=== PATIENT | female | born 1965 | race Caucasian/White ===

== ENCOUNTER 2017-07-01 17:31 | Emergency (ER) | payer BC ==
[~2017-07-01] VITALS: Ht 165.1 cm; Wt 117.0 kg
[~2017-07-01 17:31] MED LIST: IPRA1AER2 INH; LEVAAER2 INH; MOME220A INH; MONT1TAB3 PO
[2017-07-01 17:36] VITALS: TEMP 36.7; Ht 165.1 cm; Wt 117.0 kg
[2017-07-01] MEDS ORDERED: ONDANSETRON INJ 2 MG/ML 2 ML VIAL IV STA (17:54)
[2017-07-01] MEDS ORDERED: HYDROmorphone INJ 0.5 MG/0.5 ML SYR IV STA (17:54)
[2017-07-01] MEDS ORDERED: CETI10TA84 PO (18:06)
--- NOTE | 2017-07-01 18:27 | DIAGNOSTIC IMAGING REPORT ---
RIGHT KNEE 1 OR 2 VIEWS ROUTINE CLINICAL HISTORY: Right knee pain status post trauma COMPARISON: None. DISCUSSION: There is a lipoma hemarthrosis. There is a longitudinal oriented proximal tibial fracture extending to the lateral tibial plateau. IMPRESSION: 1. Minimally depressed lateral tibial plateau fracture with a longitudinal metaphyseal component 2. Lipohemarthrosis Electronically signed by: Zackery Schumacher M.D. 07/01/2017 6:26 PM Dictated Date/Time: 07/01/2017 6:25 PM
--- NOTE | 2017-07-01 19:03 | DIAGNOSTIC IMAGING REPORT ---
CT RIGHT KNEE NO CONTRAST CT DOSE: 242.40 mGy.cm CLINICAL HISTORY: Tibial plateau fracture TECHNIQUE: Helical images were acquired in the transverse plane. Sagittal and coronal reformatted images were reviewed. A dose lowering technique was utilized adhering to the principles of ALARA. COMPARISON STUDY: Conventional radiographic study dated 07/01/2017 FINDINGS: There is an oblique/longitudinally oriented fracture of the proximal tibial metaphysis. Approximately the fracture extends to the tibial spines and to the medial aspect of the lateral tibial plateau. There is an associated lipohemarthrosis. Posterior medially, there is 6 mm of maximal depression. IMPRESSION: 1. Lipohemarthrosis 2. Fracture involving the lateral tibial plateau and tibial spines with an oblique/longitudinal component which exits the medial tibial metaphysis. There is 6 mm of maximal depression of the posterior medial lateral tibial plateau fragment Electronically signed by: Zackery Schumacher M.D. 07/01/2017 7:02 PM Dictated Date/Time: 07/01/2017 6:57 PM
[2017-07-01] MEDS ORDERED: OPTIRAY 320 IV PRN (19:45)
--- NOTE | 2017-07-01 20:22 | DIAGNOSTIC IMAGING REPORT ---
CT CT ANGIOGRAPHY OF THE RIGHT LOWER EXTREMITY CT DOSE: 375.36 mGy.cm CLINICAL HISTORY: Tibial plateau fracture. Possible associated vascular injury. TECHNIQUE: CT angiography was performed from the mid femoral level to the mid tibial level and a dynamic helical fashion during intravenous administration of 120 cc of Optiray 320. MIP imaging was performed. A dose lowering technique was utilized adhering to the principles of ALARA. COMPARISON STUDY: Conventional radiographic study dated 07/01/2017, CT scan dated 07/01/2017 FINDINGS: The tibial plateau fracture previously described is again evident. The superficial femoral artery is patent. The popliteal artery is patent. There are no intimal flaps to indicate dissection. There is no evidence of pseudoaneurysm. The anterior tibial, posterior tibial, and peroneal arteries are patent to the mid calf level. IMPRESSION: 1. No evidence of acute arterial injury. 2. No evidence of arterial stenosis. Electronically signed by: Zackery Schumacher M.D. 07/01/2017 8:21 PM Dictated Date/Time: 07/01/2017 8:18 PM
[2017-07-01] MEDS ORDERED: OXYC1TAB3 PO (22:10)
[2017-07-01] MEDS ORDERED: ONDANSETRON HOME PACK 4MG OD TAB PO ONE (22:15)
[2017-07-01] MEDS ORDERED: OXYCODONE IR HOME PACK PO ONE (22:15)
[2017-07-01 22:16] VITALS: BP 147/76; PULSE 105; O2SAT 98
--- NOTE | 2017-07-02 00:15 | EMERGENCY ROOM VISIT NOTE ---
History Report prepared by Pedro: Margareth Pineda Under the Supervision of: Dr. Shun Liu M.D. First contact with patient: 17:38 Chief Complaint: KNEEPAIN Stated Complaint: FALL/ RT KNEE & HIP PAIN History of Present Illness The patient is a 52 year old female who presents to the Emergency Room with complaints of a fall [employer]. The patient was in her garage up on a ladder. She was 3 steps up. She was reaching for a shelf when she rested her right foot on a nearby stool. The stool flipped and she fell to the ground, hyperextending her right knee in the fall. She heard a snap from below her knee. She then fell to her buttocks, back, and slightly hit the back of her head. She currently rates her discomfort as a 5/10 in severity. She has had a partially torn hamstring at the insertion into the pelvis. She has been going to physical therapy. Pt denies LOC, headache, visual changes, neck pain, chest pain, breathing difficulties, nausea, vomiting, abdominal pain, back pain, numbness, weakness, open wounds, active bleeding, or other complaints. Source of History: patient Onset: [employer] Position: other (global) Symptom Intensity: 5/10 Quality: other (fall) Timing: other (episodic) Note: Pt reports right knee pain. Review of Systems See HPI for pertinent positives and negatives. A total of ten systems were reviewed and were otherwise negative. Past Medical & Surgical Medical Problems: (1) Asthma Family History Cancer Social History Smoking Status: Never Smoker Marital Status: single Occupation Status: employed Current/Historical Medications Scheduled Cetirizine (Zyrtec), 10 MG PO DAILY Montelukast Sodium (Singulair), 10 MG PO DAILY Scheduled PRN Oxycodone Ir (Roxicodone Ir), 1-2 TAB PO Q4H PRN for Severe Pain Allergies Coded Allergies: No Known Allergies (Unverified , 07/01/17) Physical Exam Vital Signs Date Time Temp Pulse Resp B/P (MAP) Pulse Ox O2 Delivery O2 Flow Rate FiO2 07/01/17 22:16 105 20 147/76 98 Room Air 07/01/17 20:56 73 130/72 98 Room Air 07/01/17 19:21 78 20 116/52 98 Room Air 07/01/17 17:36 36.7 72 18 129/85 97 Room Air Physical Exam GENERAL: Awake, alert, mildly uncomfortable appearing, no significant distress HEAD: Normocephalic, atraumatic. No thompson sign. No raccoon eyes. EYES: Normal conjunctiva. PERRL. EARS: External ears normal. Right TM normal. Left TM normal. NOSE: Atraumatic OROPHARYNX: Lips, tongue, and mucosa unremarkable. No erythema or exudate. NECK: No tracheal deviation or JVD. No posterior midline tenderness. No step offs noted. RESPIRATORY: CTA bilaterally CARDIAC: Regular rate, normal rhythm. ABDOMEN: Inspection reveals no abnormalities. Soft, non distended. No tenderness to palpation. No hernias. BACK: No midline step offs or tenderness to palpation. Unremarkable. PELVIS: Stable to rock. SKIN: Normal. LYMPH: No adenopathy. MUSCULOSKELETAL: Upper and lower extremities are atraumatic. Pain to the proximal fibular on the right. Right knee medial joint line tenderness. Patella nontender. No laxity to varus or valgus knee. Normal RLE distal pulses. NEURO: GCS 15. Normal sensorium. No sensory or motor deficits noted. Medical Decision & Procedures ER Provider Diagnostic Interpretation: Radiology results as stated below per my review and radiologist interpretation: RIGHT KNEE 1 OR 2 VIEWS ROUTINE CLINICAL HISTORY: Right knee pain status post trauma COMPARISON: None. DISCUSSION: There is a lipoma hemarthrosis. There is a longitudinal oriented proximal tibial fracture extending to the lateral tibial plateau. IMPRESSION: 1. Minimally depressed lateral tibial plateau fracture with a longitudinal metaphyseal component 2. Lipohemarthrosis Electronically signed by: Zackery Schumacher M.D. 07/01/2017 6:26 PM Dictated Date/Time: 07/01/2017 6:[address] RIGHT KNEE NO CONTRAST CT DOSE: 242.40 mGy.cm CLINICAL HISTORY: Tibial plateau fracture TECHNIQUE: Helical images were acquired in the transverse plane. Sagittal and coronal reformatted images were reviewed. A dose lowering technique was utilized adhering to the principles of ALARA. COMPARISON STUDY: Conventional radiographic study dated 07/01/2017 FINDINGS: There is an oblique/longitudinally oriented fracture of the proximal tibial metaphysis. Approximately the fracture extends to the tibial spines and to the medial aspect of the lateral tibial plateau. There is an associated lipohemarthrosis. Posterior medially, there is 6 mm of maximal depression. IMPRESSION: 1. Lipohemarthrosis 2. Fracture involving the lateral tibial plateau and tibial spines with an oblique/longitudinal component which exits the medial tibial metaphysis. There is 6 mm of maximal depression of the posterior medial lateral tibial plateau fragment Electronically signed by: Zackery Schumacher M.D. 07/01/2017 7:02 PM Dictated Date/Time: 07/01/2017 6:[address] ANGIOGRAPHY OF THE RIGHT LOWER EXTREMITY CT DOSE: 375.36 mGy.cm CLINICAL HISTORY: Tibial plateau fracture. Possible associated vascular injury. TECHNIQUE: CT angiography was performed from the mid femoral level to the mid tibial level and a dynamic helical fashion during intravenous administration of 120 cc of Optiray 320. MIP imaging was performed. A dose lowering technique was utilized adhering to the principles of ALARA. COMPARISON STUDY: Conventional radiographic study dated 07/01/2017, CT scan dated 07/01/2017 FINDINGS: The tibial plateau fracture previously described is again evident. The superficial femoral artery is patent. The popliteal artery is patent. There are no intimal flaps to indicate dissection. There is no evidence of pseudoaneurysm. The anterior tibial, posterior tibial, and peroneal arteries are patent to the mid calf level. IMPRESSION: 1. No evidence of acute arterial injury. 2. No evidence of arterial stenosis. Electronically signed by: Zackery Schumacher M.D. 07/01/2017 8:21 PM Dictated Date/Time: 07/01/2017 8:18 PM Medications Administered Medications (Trade) Dose Ordered Sig/Latrice Route Start Time Stop Time Status Last Admin Dose Admin Hydromorphone HCl (Dilaudid Inj) 0.5 mg NOW STAT IV 07/01/17 17:54 07/01/17 17:56 DC 07/01/17 17:59 0.5 MG Ondansetron HCl (Zofran Inj) 4 mg NOW STAT IV 07/01/17 17:54 07/01/17 17:56 DC 07/01/17 17:59 4 MG Oxycodone HCl (Roxicodone Immediate Rel 5MG Home Pack) 1 homepack UD ONCE PO 07/01/17 22:15 07/01/17 22:16 DC 07/01/17 22:18 1 HOMEPACK Ondansetron HCl (ZOFRAN ODT 4MG Home Pack) 1 homepack UD ONCE PO 07/01/17 22:15 9/16/17 22:16 DC 07/01/17 22:18 1 HOMEPACK ED Course 174: The patient was evaluated in room A4B. A complete history and physical exam was performed. 175: Zofran Inj 4 mg IV, Dilaudid Inj 0.5 mg IV. 1844: I reevaluated the patient. She is going to CT. 1922: I discussed the patient's case with Dr. Vergara [facility] [place] orthopedic surgeon. He recommends a CTA. 1938: I reevaluated the patient. I updated her on the plan. 2154: I reevaluated the patient. She is doing well. I answered all her questions. She requests to see Dr. Pressley. He will be paged as he is production grip today. 2204: I discussed the patient's case with Huan Hutton and [facility] - orthopedic surgery. He will see her in the office next week. 2209: I reevaluated the patient. I discussed results and discharge instructions : she verbalized understanding and agreement. The patient is ready for discharge. 2214: Ondansetron HCl 1 homepack PO, Oxycodone HCl 1 homepack PO. Medical Decision Triage Nursing notes reviewed and agree them. The patient's history was concerning for traumatic injury. Differential diagnosis: Etiologies such as fracture, dislocation, neurovascular compromise, compartment syndrome, soft tissue injury, as well as others were entertained. Physical examination: Consistent with an isolated right knee injury. ER treatment provided: IV Dilaudid IV Zofran On reassessment the patient felt better. Knee immobilizer Crutches Diagnostics interpreted by me: Imaging studies: Xrays and CT scans as above. The patient is a tibial plateau fracture. She did not suffer any other significant injury. She is doing well. There is no evidence of arterial injury. There is no significant instability to suggest dislocation. The patient is tolerating crutches and the knee immobilizer. Consultation: A consultation was placed with the orthopedist, Dr Vergara who is covering for unassigned orthopedics. He recommended a CT angiogram given the type of injury and this was performed. On further discussion with the patient she would like to follow up with Dr. Pressley orthopedics. I was able to get in touch with him. The case was discussed and diagnostics were reviewed. He agreed with the treatment and will see the patient first thing next week. He asked for her to call the office at 8 AM Monday morning. By the evaluation outlined above emergent etiologies such as open fracture, dislocation, neurovascular compromise, compartment syndrome, infections, as well as others were deemed relatively unlikely. The patient and family were informed about the findings as listed above. All questions were answered and they were leased with the treatment. Return instructions were outlined and the patient was discharged in stable condition. Prescription management: Oxy IR Referral: The patient was referred to Dr. Pressley of Orthopedics for follow-up care. Head Trauma GCS Score: 15 Medication Reconcilliation Current Medication List: was personally reviewed by me Blood Pressure Screening Patient's blood pressure: Elevated blood pressure Blood pressure disposition: Elevated BP felt to be situational Consults Time Called: 1904 Consulting Physician: Dr. Jai Nicholson orthopedic surgeon Returned Call: 1922 I discussed the patient's case with him. He recommends a CTA. Additional Consults: Time Called: 2199 Consulted Physician: Huan Hutton and [facility] - orthopedic surgery Returned Call: 2204 Additional Comments: I discussed the patient's case with him. He will see her in the office next week. Impression Primary Impression: Fracture of right tibial plateau Scribe Attestation The scribe's documentation has been prepared under my direction and personally reviewed by me in its entirety. I confirm that the note above accurately reflects all work, treatment, procedures, and medical decision making performed by me. Departure Information Dispostion Home / Self-Care Prescriptions Oxycodone Ir (Roxicodone Ir) 5 Mg Tab 1-2 TAB PO Q4H Y for Severe Pain, #24 TAB Prov: Shun Liu MD 07/01/17 Referrals [place] M.D. (PCP) Forms HOME CARE DOCUMENTATION FORM, IMPORTANT VISIT INFORMATION Patient Instructions My [facility] Additional Instructions ORTHOPEDIC INSTRUCTIONS: DO NOT drive, drink alcohol, operate machinery, or perform dangerous activities today. You were given medications in the ER that can affect your ability to safely function or operate a vehicle. Oxycodone (OxyIR) 5mg: Take 1-2 pills every four hours for breakthrough pain. Avoid alcohol, operating machinery or dangerous equipment, working on ladders or roofs, DRIVING, or situations where being under the influence may be dangerous. It is recommended to use an yuxq-dnt-ehctese stool softener such as Colace, 100mg twice daily while taking this medication to avoid constipation. Ibuprofen(Motrin, Advil) may be used for fever or pain. Use 600mg every six hours as needed. Take with food. Avoid using more than 2400mg in a 24 hour period. Do not use 2400mg per day for more than three consecutive days without physician direction. Prolonged inappropriate use can lead to stomach upset or ulcers. (AND/OR) Acetaminophen(Tylenol) may be used for fever or pain. Use 1000mg every six hours as needed. Avoid using more than 4000mg in a 24 hour period. Ice compresses for 20 minutes at a time four times daily for 2-3 days. Use the crutches as instructed. No weightbearing on the right leg. Rest and elevate your injury. Maintain the immobilizer at all times. Return to the ER immediately for any numbness, tingling, severe pain, extreme swelling in the extremity or as needed. Call [facility], [phone], 8:00 Monday morning to arrange follow up for your injury.
== END 2017-07-01 22:24 | disposition home or self-care (01) ==
LOC: EDBD 17:31 → C.EDA 17:34
DX: S82.141A Displaced bicondylar fracture of right tibia, initial encounter for closed fracture (principal); W11.XXXA Fall on and from ladder, initial encounter; Y92.008 Other place in unspecified non-institutional (private) residence as the place of occurrence of the external cause; J45.909 Unspecified asthma, uncomplicated; Z80.9 Family history of malignant neoplasm, unspecified; Z79.899 Other long term (current) drug therapy

== ENCOUNTER → 2017-12-28 | Outpatient (CLI) | payer BC ==
[~2017-12-28] MED LIST changes: +CETI10TA84 PO; -IPRA1AER2 INH; -LEVAAER2 INH; -MOME220A INH; +OXYC1TAB3 PO
[2017-12-28 12:40] LABS: BLOOD UREA NITROGEN 15 mg/dl (7-18); CARBON DIOXIDE 27 mmol/L (21-32); CREATININE 0.74 mg/dl (0.60-1.20); GLUCOSE 83 mg/dl (70-99); POTASSIUM 3.9 mmol/L (3.5-5.1); SODIUM 137 mmol/L (136-145)
[2017-12-28 12:50] LABS: CHOLESTEROL 212 mg/dl (0-200); LDL CHOLESTEROL CALCULATED 106 mg/dl
== END | disposition home or self-care (01) ==
LOC: C.LAB 10:57
PROVIDERS: ATTEND Internal Medicine Geriatric Medicine
DX: E78.5 Hyperlipidemia, unspecified (principal); R53.83 Other fatigue; G47.30 Sleep apnea, unspecified; Z68.41 Body mass index [BMI] 40.0-44.9, adult

== ENCOUNTER → 2017-12-28 | Outpatient (CLI) | payer BC ==
--- NOTE | 2017-12-28 15:15 | MAMMOGRAPHY REPORT ---
BILATERAL DIGITAL SCREENING MAMMOGRAM TOMOSYNTHESIS WITH CAD: 12/28/2017 CLINICAL HISTORY: Routine screening. Patient has no complaints. TECHNIQUE: Breast tomosynthesis in addition to standard 2D mammography was performed. Current study was also evaluated with a Computer Aided Detection (CAD) system. COMPARISON: Comparison is made to exams dated: 06/09/2016 mammogram, 09/26/2013 mammogram, 02/28/2013 ultrasound, 02/28/2013 mammogram, 09/25/2012 mammogram - [facility], and 04/07/2009. BREAST COMPOSITION: There are scattered areas of fibroglandular density in both breasts. FINDINGS: No suspicious masses, calcifications, or areas of architectural distortion are noted in ei ther breast. There has been no significant interval change compared to prior exams. A round circumsc ribed benign-appearing 4 mm mass with a few associated calcifications seen within the right upper out er quadrant is not significantly changed in size compared to prior exams; the mass was shown to be pa rtially of fat density on the prior 2012 exam and is compatible with an oil cyst related to fat necro sis. A few other scattered bilateral benign-appearing calcifications are not significantly changed. IMPRESSION: ACR BI-RADS CATEGORY 2: BENIGN There is no mammographic evidence of malignancy. A 1 year screening mammogram is recommended. The pa tient will receive written notification of the results. Approximately 10% of breast cancers are not detected with mammography. A negative mammographic report should not delay biopsy if a clinically suggestive mass is present. Pamela Youngblood M.D. /:12/28/2017 14:11:20 Baseball Player: Stacey CAMPA(Sahra)(M), [facility] letter sent: Normal 1/2 BI-RADS Code: ACR BI-RADS Category 2: Benign
== END | disposition home or self-care (01) ==
LOC: C.MAMM 13:40
PROVIDERS: ATTEND Internal Medicine Geriatric Medicine
DX: Z12.31 Encounter for screening mammogram for malignant neoplasm of breast (principal)